=== PATIENT | male | born 1950 | race Caucasian/White ===

== ENCOUNTER 2023-03-16 01:25 | Inpatient (IN) | payer MEDICARE, OTHER ==
[~2023-03-16] VITALS: Ht 165.1 cm; Wt 78.0 kg
[2023-03-16 00:35] VITALS: BP 120/57; TEMP 98.2; O2SAT 98
[2023-03-16] MEDS ORDERED: HYDROCODONE/APAP 5/325MG TABLET PO PRN (03:00)
[2023-03-16] MEDS ORDERED: DEXTROSE 50%-WATER 50 ML DISP.SYRIN IV PRN (03:00)
[2023-03-16] MEDS ORDERED: MAG HYDROX/AL HYDROX/SIMETH 30 ML UDC PO PRN (03:00)
[2023-03-16] MEDS ORDERED: MAGNESIUM HYDROXIDE 30 ML UDC PO PRN (03:00)
[2023-03-16] MEDS ORDERED: Z GUARD REMEDY 4 OZ OINT TP PRN (03:00)
[2023-03-16] MEDS ORDERED: MORPHINE SULFATE INJ 2 MG/ML DISP.SYRIN IV PRN (03:00)
[2023-03-16] MEDS: BLOOD SUGAR DIAGNOSTIC 1 EACH STRIP IN SCH (06:46)
[2023-03-16] MEDS: INSULIN REGULAR, HUMAN 100 UNIT/ML 3 ML VIAL SQ PRN (06:48)
[2023-03-16] MEDS: PANTOPRAZOLE 40 MG TABLET.DR PO SCH (07:41)
[2023-03-16] MEDS ORDERED: CEPH500C2 PO (08:24)
[2023-03-16] MEDS ORDERED: CLOP75TA15 PO (08:24)
[2023-03-16] MEDS ORDERED: ASPI-1169 PO (08:24)
[2023-03-16] MEDS ORDERED: BUME2TAB7 PO (08:24)
[2023-03-16] MEDS ORDERED: METO25TA6 PO (08:24)
[2023-03-16] MEDS ORDERED: BLOO-668 IN (08:24)
[2023-03-16] MEDS ORDERED: ROSU5TAB PO (08:24)
[2023-03-16] MEDS ORDERED: INSU100I24 SQ (08:24)
[2023-03-16] MEDS: FUROSEMIDE 40 MG/4 ML VIAL IV SCH (09:06)
[2023-03-16 09:29] LABS: BASOPHILS % (AUTO) 0.5 % (0.0-2.0); EOSINOPHILS # (AUTO) 0.1 K/uL (0.0-0.7); EOSINOPHILS % (AUTO) 2.6 % (0.0-6.0); HEMATOCRIT 31 % (39-51); HEMOGLOBIN 10.1 g/dL (13.5-17.5); LYMPHOCYTES # (AUTO) 0.6 K/uL (0.8-4.8); LYMPHOCYTES % (AUTO) 9.7 % (20.0-44.0); MEAN CORPUSCULAR HEMOGLOBIN 25 PG (26.0-33.0); MEAN CORPUSCULAR HGB CONC 32 g/dl (31.0-36.0); MEAN CORPUSCULAR VOLUME 77 fL (80-96); MONOCYTES # (AUTO) 0.6 K/uL (0.1-1.30); MONOCYTES % (AUTO) 10.5 % (2.0-12.0); NEUTROPHILS # (AUTO) 4.4 K/uL (1.8-8.9); NEUTROPHILS % (AUTO) 76.7 % (43.0-81.0); PLATELET COUNT (AUTO) 281 K/uL (150-450); RED BLOOD CELL COUNT(AUTO) 4.06 MIL/uL (4.5-6.0); RED CELL DISTRIBUTION WIDTH 20.4 % (11.5-15.0); WHITE BLOOD COUNT (AUTO) 5.7 K/uL (4.3-11.0)
[2023-03-16 09:42] LABS: ALBUMIN 2.3 g/dL (3.4-5.0); BILIRUBIN,TOTAL 1.2 mg/dL (0.2-1.0); CALCIUM, SERUM 8.8 mg/dL (8.5-10.1); CREATININE 1.2 mg/dL (0.6-1.3); PHOSPHORUS 3.8 mg/dL (2.5-4.9); POTASSIUM 3.5 mmol/L (3.5-5.1); TOTAL PROTEIN, SERUM 8.1 g/dL (6.4-8.2)
[2023-03-16 12:10] VITALS: BP 114/54; TEMP 97.5; O2SAT 95
[2023-03-16 16:02] VITALS: BP 125/65; TEMP 97.5; O2SAT 96
[2023-03-16] MEDS ORDERED: INSULIN DEGLUDEC 75 UNIT SQ PRN (16:30)
[2023-03-16] MEDS: CEPHALEXIN MONOHYDRATE 500 MG CAPSULE PO SCH (18:10)
[2023-03-16] MEDS: ENOXAPARIN SODIUM 40 MG/0.4 ML DISP.SYRIN SQ SCH (18:11)
[2023-03-16 20:00] VITALS: BP 118/56; TEMP 98; O2SAT 97
[2023-03-17] VITALS: BP 122/68; TEMP 97.7; O2SAT 96
[2023-03-17 04:00] VITALS: BP 117/61; TEMP 98; O2SAT 95
[2023-03-17 05:00] VITALS: BP 117/61; TEMP 98; O2SAT 95
[2023-03-17 07:03] LABS: BASOPHILS % (AUTO) 0.6 % (0.0-2.0); EOSINOPHILS # (AUTO) 0.1 K/uL (0.0-0.7); EOSINOPHILS % (AUTO) 2.5 % (0.0-6.0); HEMATOCRIT 29 % (39-51); HEMOGLOBIN 9.3 g/dL (13.5-17.5); LYMPHOCYTES # (AUTO) 0.7 K/uL (0.8-4.8); LYMPHOCYTES % (AUTO) 13.2 % (20.0-44.0); MEAN CORPUSCULAR HEMOGLOBIN 25 PG (26.0-33.0); MEAN CORPUSCULAR HGB CONC 32 g/dl (31.0-36.0); MEAN CORPUSCULAR VOLUME 77 fL (80-96); MONOCYTES # (AUTO) 0.7 K/uL (0.1-1.30); MONOCYTES % (AUTO) 12.2 % (2.0-12.0); NEUTROPHILS # (AUTO) 3.8 K/uL (1.8-8.9); NEUTROPHILS % (AUTO) 71.5 % (43.0-81.0); PLATELET COUNT (AUTO) 280 K/uL (150-450); RED BLOOD CELL COUNT(AUTO) 3.73 MIL/uL (4.5-6.0); RED CELL DISTRIBUTION WIDTH 20.2 % (11.5-15.0); WHITE BLOOD COUNT (AUTO) 5.4 K/uL (4.3-11.0)
[2023-03-17 07:33] LABS: CALCIUM, SERUM 8.5 mg/dL (8.5-10.1); CHLORIDE 104 mmol/L (98-107); GLUCOSE 121 mg/dL (74-106); MAGNESIUM 2.1 mg/dL (1.8-2.4); PHOSPHORUS 3.9 mg/dL (2.5-4.9); POTASSIUM 3.6 mmol/L (3.5-5.1); SODIUM SERUM 138 mmol/L (136-145); UREA NITROGEN, BLOOD 27 mg/dL (7-18)
[2023-03-17 07:40] LABS: CHOLESTEROL 174 mg/dL (<200); HDL CHOLESTEROL 37 mg/dL (40-60); LDL 121 mg/dL (0-99); THYROID STIMULATING HORMONE 5.116 uIU/mL (0.358-3.74); TRIGLYCERIDES 71 mg/dL (30-150)
[2023-03-17 08:00] VITALS: BP 120/65; TEMP 97.9; O2SAT 91
[2023-03-17 08:17] LABS: CARBON DIOXIDE 22 mmol/L (21-32)
[2023-03-17] MEDS: POTASSIUM CHLORIDE 20 MEQ TAB.PRT.SR PO SCH (08:36)
[2023-03-17] MEDS: ATORVASTATIN 10 MG TABLET PO SCH (08:36)
[2023-03-17] MEDS: ASPIRIN 81 MG TAB.CHEW PO SCH (08:36)
[2023-03-17] MEDS: METOPROLOL TARTRATE 25 MG TABLET PO SCH (08:38)
[2023-03-17] MEDS: CLOPIDOGREL BISULFATE 75 MG TABLET PO SCH (08:38)
[2023-03-17] MEDS: FUROSEMIDE 100 MG/10 ML VIAL IV SCH (08:41)
[2023-03-17] MEDS: INSULIN GLARGINE, 100 UNIT/ML CARTRIDGE SQ SCH (08:49)
[2023-03-17 12:00] VITALS: BP 111/58; TEMP 97.3; O2SAT 95
[2023-03-17 20:00] VITALS: BP 112/55; TEMP 98.2; O2SAT 100
[2023-03-18] VITALS: BP 121/61; TEMP 98.6; O2SAT 91
[2023-03-18 04:00] VITALS: BP 123/66; TEMP 97.9; O2SAT 97
[2023-03-18 07:25] LABS: BASOPHILS % (AUTO) 0.6 % (0.0-2.0); EOSINOPHILS # (AUTO) 0.2 K/uL (0.0-0.7); EOSINOPHILS % (AUTO) 3.6 % (0.0-6.0); HEMATOCRIT 30 % (39-51); HEMOGLOBIN 9.7 g/dL (13.5-17.5); LYMPHOCYTES # (AUTO) 0.7 K/uL (0.8-4.8); LYMPHOCYTES % (AUTO) 13.7 % (20.0-44.0); MEAN CORPUSCULAR HEMOGLOBIN 25 PG (26.0-33.0); MEAN CORPUSCULAR HGB CONC 33 g/dl (31.0-36.0); MEAN CORPUSCULAR VOLUME 77 fL (80-96); MONOCYTES # (AUTO) 0.6 K/uL (0.1-1.30); NEUTROPHILS # (AUTO) 3.7 K/uL (1.8-8.9); NEUTROPHILS % (AUTO) 70.1 % (43.0-81.0); PLATELET COUNT (AUTO) 282 K/uL (150-450); RED BLOOD CELL COUNT(AUTO) 3.85 MIL/uL (4.5-6.0); RED CELL DISTRIBUTION WIDTH 19.7 % (11.5-15.0); WHITE BLOOD COUNT (AUTO) 5.3 K/uL (4.3-11.0)
[2023-03-18 07:39] LABS: ALBUMIN 2.2 g/dL (3.4-5.0); BILIRUBIN,TOTAL 0.9 mg/dL (0.2-1.0); CALCIUM, SERUM 8.5 mg/dL (8.5-10.1); CREATININE 1.1 mg/dL (0.6-1.3); PHOSPHORUS 4.1 mg/dL (2.5-4.9); POTASSIUM 3.8 mmol/L (3.5-5.1); TOTAL PROTEIN, SERUM 7.9 g/dL (6.4-8.2)
[2023-03-18 08:00] VITALS: BP 118/60; TEMP 98.1; O2SAT 97
[2023-03-18] MEDS: POTASSIUM CHLORIDE 20 MEQ TAB.PRT.SR PO SCH (09:26)
[2023-03-18] MEDS: FUROSEMIDE 100 MG/10 ML VIAL IV SCH (09:26)
[2023-03-18] MEDS: ATORVASTATIN 40 MG TABLET PO SCH (09:37)
[2023-03-18 12:00] VITALS: BP 107/64; TEMP 98; O2SAT 98
[2023-03-18 16:00] VITALS: BP 109/60; TEMP 98.2; O2SAT 98
[2023-03-18 20:00] VITALS: BP_SYST 105; BP_DIAS 48; BP_DIAS 78; TEMP 97; TEMP 97.9; O2SAT 100
[2023-03-19] VITALS: BP 105/48; TEMP 97.9; O2SAT 98
[2023-03-19 04:00] VITALS: BP_SYST 108; BP_DIAS 54; BP_DIAS 59; TEMP 98.2; O2SAT 97
[2023-03-19 06:37] LABS: BASOPHILS % (AUTO) 0.5 % (0.0-2.0); EOSINOPHILS # (AUTO) 0.1 K/uL (0.0-0.7); EOSINOPHILS % (AUTO) 2.8 % (0.0-6.0); HEMATOCRIT 29 % (39-51); HEMOGLOBIN 9.3 g/dL (13.5-17.5); LYMPHOCYTES # (AUTO) 0.7 K/uL (0.8-4.8); LYMPHOCYTES % (AUTO) 13.7 % (20.0-44.0); MEAN CORPUSCULAR HEMOGLOBIN 25 PG (26.0-33.0); MEAN CORPUSCULAR HGB CONC 32 g/dl (31.0-36.0); MEAN CORPUSCULAR VOLUME 77 fL (80-96); MONOCYTES # (AUTO) 0.6 K/uL (0.1-1.30); MONOCYTES % (AUTO) 11.1 % (2.0-12.0); NEUTROPHILS # (AUTO) 3.6 K/uL (1.8-8.9); NEUTROPHILS % (AUTO) 71.9 % (43.0-81.0); PLATELET COUNT (AUTO) 265 K/uL (150-450); RED BLOOD CELL COUNT(AUTO) 3.71 MIL/uL (4.5-6.0); RED CELL DISTRIBUTION WIDTH 19.9 % (11.5-15.0)
[2023-03-19 07:00] VITALS: BP 118/59; TEMP 97.9; O2SAT 98
[2023-03-19 07:00] LABS: ALBUMIN 2.1 g/dL (3.4-5.0); BILIRUBIN,TOTAL 0.8 mg/dL (0.2-1.0); CALCIUM, SERUM 8.5 mg/dL (8.5-10.1); CREATININE 1.2 mg/dL (0.6-1.3); MAGNESIUM 2.1 mg/dL (1.8-2.4); POTASSIUM 4.1 mmol/L (3.5-5.1); TOTAL PROTEIN, SERUM 7.7 g/dL (6.4-8.2)
[2023-03-19] MEDS: MUPIROCIN OINT 2% 22 GM TUBE TP SCH (08:45)
[2023-03-19] MEDS ORDERED: GADOTERATE MEGLUMINE 10 MMOL/20 ML VIAL IV ONE (12:25)
[2023-03-19 16:00] VITALS: BP 118/60; TEMP 97.5; O2SAT 98
[2023-03-19 20:00] VITALS: BP 119/53; TEMP 97.3; O2SAT 99
[2023-03-20 00:19] VITALS: BP 110/55; TEMP 98.1; O2SAT 97
[2023-03-20 05:00] VITALS: BP 90/59; TEMP 98.2; O2SAT 98
[2023-03-20 07:25] LABS: CALCIUM, SERUM 8.4 mg/dL (8.5-10.1); CREATININE 1.1 mg/dL (0.6-1.3)
[2023-03-20 07:30] VITALS: BP 115/64; TEMP 98.6; O2SAT 97
[2023-03-20] MEDS: POTASSIUM CHLORIDE 20 MEQ TAB.PRT.SR PO SCH (10:13)
[2023-03-20] MEDS: FUROSEMIDE 100 MG/10 ML VIAL IV SCH (10:14)
[2023-03-20] MEDS: VANCOMYCIN 1.5 GM in IV D5W 500ml IV ONE (10:17)
[2023-03-20 16:00] VITALS: BP_SYST 119; BP_SYST 96; BP_DIAS 55; TEMP 97.7; TEMP 99.9; O2SAT 96; O2SAT 97
[2023-03-20 20:00] VITALS: BP 129/67; TEMP 99.1; O2SAT 99
[2023-03-20] MEDS: VANCOMYCIN HCL 0.75 GM in IV D5W 250 ML IV SCH (22:14)
[2023-03-21] VITALS: BP 121/58; TEMP 97.7; O2SAT 94
[2023-03-21] MEDS: ZOLPIDEM TARTRATE 5 MG TABLET PO PRN (00:49)
[2023-03-21 07:11] LABS: BASOPHILS % (AUTO) 0.5 % (0.0-2.0); EOSINOPHILS # (AUTO) 0.1 K/uL (0.0-0.7); EOSINOPHILS % (AUTO) 2.7 % (0.0-6.0); HEMATOCRIT 27 % (39-51); HEMOGLOBIN 8.8 g/dL (13.5-17.5); LYMPHOCYTES # (AUTO) 0.8 K/uL (0.8-4.8); LYMPHOCYTES % (AUTO) 14.9 % (20.0-44.0); MEAN CORPUSCULAR HEMOGLOBIN 25 PG (26.0-33.0); MEAN CORPUSCULAR HGB CONC 33 g/dl (31.0-36.0); MEAN CORPUSCULAR VOLUME 77 fL (80-96); MONOCYTES # (AUTO) 0.5 K/uL (0.1-1.30); MONOCYTES % (AUTO) 10.5 % (2.0-12.0); NEUTROPHILS # (AUTO) 3.7 K/uL (1.8-8.9); NEUTROPHILS % (AUTO) 71.4 % (43.0-81.0); PLATELET COUNT (AUTO) 253 K/uL (150-450); RED BLOOD CELL COUNT(AUTO) 3.52 MIL/uL (4.5-6.0); RED CELL DISTRIBUTION WIDTH 19.3 % (11.5-15.0); WHITE BLOOD COUNT (AUTO) 5.2 K/uL (4.3-11.0)
[2023-03-21 07:22] LABS: ALBUMIN 2.2 g/dL (3.4-5.0); BILIRUBIN,TOTAL 0.7 mg/dL (0.2-1.0); CALCIUM, SERUM 8.5 mg/dL (8.5-10.1); CREATININE 1.2 mg/dL (0.6-1.3); MAGNESIUM 2.1 mg/dL (1.8-2.4); PHOSPHORUS 3.6 mg/dL (2.5-4.9); POTASSIUM 4.4 mmol/L (3.5-5.1); TOTAL PROTEIN, SERUM 7.8 g/dL (6.4-8.2)
[2023-03-21 08:00] VITALS: BP 115/58; TEMP 97.7; O2SAT 95
[2023-03-21 12:00] VITALS: BP 108/50; TEMP 97.5; O2SAT 95
[2023-03-21] MEDS: FUROSEMIDE 100 MG/10 ML VIAL IV SCH (12:55)
[2023-03-21 16:00] VITALS: BP 110/53; TEMP 97.7; O2SAT 95
[2023-03-21] MEDS: CEFTRIAXONE 2 G in IV D5W 100 ML IV SCH (16:43)
[2023-03-21] MEDS: DOCUSATE SODIUM 100 MG CAPSULE PO SCH (18:29)
[2023-03-21 20:00] VITALS: BP 112/50; TEMP 97.9; O2SAT 98
[2023-03-21] MEDS: BISACODYL (5 MG) 5 MG TABLET.DR PO PRN (21:59)
[2023-03-22] VITALS (7 sets, daily range): BP systolic 100–120; BP diastolic 45–60; TEMP 97.7–98.6; O2SAT 97–100
[2023-03-22 06:21] LABS: BASOPHILS % (AUTO) 0.5 % (0.0-2.0); EOSINOPHILS # (AUTO) 0.1 K/uL (0.0-0.7); EOSINOPHILS % (AUTO) 2.6 % (0.0-6.0); HEMATOCRIT 24 % (39-51); HEMOGLOBIN 7.7 g/dL (13.5-17.5); LYMPHOCYTES # (AUTO) 0.9 K/uL (0.8-4.8); LYMPHOCYTES % (AUTO) 19.4 % (20.0-44.0); MEAN CORPUSCULAR HEMOGLOBIN 25 PG (26.0-33.0); MEAN CORPUSCULAR HGB CONC 33 g/dl (31.0-36.0); MEAN CORPUSCULAR VOLUME 76 fL (80-96); MONOCYTES # (AUTO) 0.4 K/uL (0.1-1.30); MONOCYTES % (AUTO) 9.8 % (2.0-12.0); NEUTROPHILS % (AUTO) 67.7 % (43.0-81.0); PLATELET COUNT (AUTO) 226 K/uL (150-450); RED BLOOD CELL COUNT(AUTO) 3.09 MIL/uL (4.5-6.0); RED CELL DISTRIBUTION WIDTH 19.8 % (11.5-15.0); WHITE BLOOD COUNT (AUTO) 4.5 K/uL (4.3-11.0)
[2023-03-22 06:58] LABS: ALBUMIN 2.1 g/dL (3.4-5.0); BILIRUBIN,TOTAL 0.6 mg/dL (0.2-1.0); CALCIUM, SERUM 8.4 mg/dL (8.5-10.1); CREATININE 1.1 mg/dL (0.6-1.3); MAGNESIUM 2.1 mg/dL (1.8-2.4); POTASSIUM 3.9 mmol/L (3.5-5.1); TOTAL PROTEIN, SERUM 7.5 g/dL (6.4-8.2)
[2023-03-22] MEDS: SPIRONOLACTONE 25 MG TABLET PO SCH (09:55)
[2023-03-22] MEDS: VANCOMYCIN 1 GM in IV D5W 250 ML IV SCH (14:07)
[2023-03-23] VITALS (18 sets, daily range): BP systolic 64–117; BP diastolic 39–77; TEMP 97.8–98.4; O2SAT 88–100
[2023-03-23 00:55] LABS: OCCULT BLOOD STOOL NEGATIVE (NEGATIVE)
[2023-03-23 09:33] LABS: BASOPHILS % (AUTO) 0.4 % (0.0-2.0); EOSINOPHILS % (AUTO) 0.3 % (0.0-6.0); HEMATOCRIT 22 % (39-51); LYMPHOCYTES # (AUTO) 0.7 K/uL (0.8-4.8); LYMPHOCYTES % (AUTO) 13.7 % (20.0-44.0); MEAN CORPUSCULAR HEMOGLOBIN 25 PG (26.0-33.0); MEAN CORPUSCULAR HGB CONC 32 g/dl (31.0-36.0); MEAN CORPUSCULAR VOLUME 77 fL (80-96); MONOCYTES # (AUTO) 0.4 K/uL (0.1-1.30); MONOCYTES % (AUTO) 8.1 % (2.0-12.0); NEUTROPHILS % (AUTO) 77.5 % (43.0-81.0); PLATELET COUNT (AUTO) 213 K/uL (150-450); RED BLOOD CELL COUNT(AUTO) 2.81 MIL/uL (4.5-6.0); RED CELL DISTRIBUTION WIDTH 19.5 % (11.5-15.0); WHITE BLOOD COUNT (AUTO) 5.1 K/uL (4.3-11.0)
[2023-03-23] MEDS: ONDANSETRON HCL/PF 4 MG/2 ML VIAL IVP PRN (15:43)
[2023-03-24] VITALS (32 sets, daily range): BP systolic 76–111; BP diastolic 34–77; TEMP 97.8–98.9; O2SAT 82–100
[2023-03-24 05:08] LABS: CALCIUM, SERUM 8.5 mg/dL (8.5-10.1); CREATININE 1.3 mg/dL (0.6-1.3)
[2023-03-24 07:00] LABS: BASOPHILS % (AUTO) 0.5 % (0.0-2.0); LYMPHOCYTES # (AUTO) 0.8 K/uL (0.8-4.8); MEAN CORPUSCULAR VOLUME 77 fL (80-96); MONOCYTES # (AUTO) 0.5 K/uL (0.1-1.30); WHITE BLOOD COUNT (AUTO) 5.8 K/uL (4.3-11.0)
[2023-03-24 07:09] LABS: EOSINOPHILS % (AUTO) 0.5 % (0.0-6.0); LYMPHOCYTES % (AUTO) 13.5 % (20.0-44.0); MEAN CORPUSCULAR HEMOGLOBIN 25 PG (26.0-33.0); MEAN CORPUSCULAR HGB CONC 32 g/dl (31.0-36.0); MONOCYTES % (AUTO) 8.6 % (2.0-12.0); NEUTROPHILS # (AUTO) 4.5 K/uL (1.8-8.9); NEUTROPHILS % (AUTO) 76.9 % (43.0-81.0); PLATELET COUNT (AUTO) 199 K/uL (150-450); RED CELL DISTRIBUTION WIDTH 19.2 % (11.5-15.0)
[2023-03-24 07:22] LABS: HEMATOCRIT 19 % (39-51); HEMOGLOBIN 6.2 g/dL (13.5-17.5)
[2023-03-24 07:46] LABS: ANISOCYTOSIS 1+; EOSINOPHILS % (MANUAL) 1 % (0-4); LYMPHOCYTES % (MANUAL) 7 % (16-48); MONOCYTES % (MANUAL) 4 % (0-11.0); NEUTROPHILS % (MANUAL) 88 (42-76)
[2023-03-24] MEDS: FUROSEMIDE 20 MG/2 ML VIAL IV SCH (13:10)
[2023-03-24] MEDS: SIMETHICONE 80 MG TAB.CHEW PO PRN (13:24)
[2023-03-24] MEDS ORDERED: VANCOMYCIN 0.75 GM in IV D5W 250 ML IV SCH (16:30)
[2023-03-24 18:29] LABS: BASOPHILS % (AUTO) 0.5 % (0.0-2.0); EOSINOPHILS % (AUTO) 0.3 % (0.0-6.0); LYMPHOCYTES # (AUTO) 0.8 K/uL (0.8-4.8); LYMPHOCYTES % (AUTO) 12.5 % (20.0-44.0); MEAN CORPUSCULAR HEMOGLOBIN 25 PG (26.0-33.0); MEAN CORPUSCULAR HGB CONC 32 g/dl (31.0-36.0); MEAN CORPUSCULAR VOLUME 77 fL (80-96); MONOCYTES # (AUTO) 0.6 K/uL (0.1-1.30); MONOCYTES % (AUTO) 9.5 % (2.0-12.0); NEUTROPHILS # (AUTO) 5.2 K/uL (1.8-8.9); NEUTROPHILS % (AUTO) 77.2 % (43.0-81.0); PLATELET COUNT (AUTO) 196 K/uL (150-450); RED BLOOD CELL COUNT(AUTO) 2.51 MIL/uL (4.5-6.0); RED CELL DISTRIBUTION WIDTH 19.6 % (11.5-15.0); WHITE BLOOD COUNT (AUTO) 6.7 K/uL (4.3-11.0)
[2023-03-24 18:45] LABS: HEMATOCRIT 19 % (39-51); HEMOGLOBIN 6.2 g/dL (13.5-17.5)
[2023-03-24 19:37] LABS: ANISOCYTOSIS 1+; EOSINOPHILS % (MANUAL) 1 % (0-4); LYMPHOCYTES % (MANUAL) 13 % (16-48); MONOCYTES % (MANUAL) 5 % (0-11.0); NEUTROPHILS % (MANUAL) 81 (42-76); PLATELET ESTIMATE ADEQUATE
[2023-03-24 19:38] LABS: ROULEAUX 1+
[2023-03-24] MEDS: PANTOPRAZOLE 40 MG VIAL IV SCH (20:59)
[2023-03-24] MEDS: SOD FERRIC GLUC 125 MG in IV NS 0.9% 100 ML IV SCH (21:00)
[2023-03-24] MEDS: VANCOMYCIN 0.75 GM in IV D5W 250 ML IV SCH (21:22)
[2023-03-24 21:44] LABS: CREATININE, URINE 73.7 MG/DL (30.0-125.0); URINE TOTAL PROTEIN 29.8 mg/dL (0-11.9)
[2023-03-24 22:04] LABS: APPEARANCE,URINE CLEAR (CLEAR); BILIRUBIN,URINE NEGATIVE (NEGATIVE); BLOOD, URINE NEGATIVE Ery/uL (NEGATIVE); COLOR,URINE YELLOW (YELLOW); KETONES,URINE NEGATIVE (NEGATIVE); LEUKOCYTE ESTERASE ,URINE NEGATIVE (NEGATIVE); NITRITE, URINE NEGATIVE (NEGATIVE); PH,URINE 5.5 (5.0-8.0); PROTEIN,URINE TRACE mg/dl (NEGATIVE); UGLUCOSE NEGATIVE (NEGATIVE); UROBILINOGEN,URINE 0.2 EU/dL (0.2)
[2023-03-24 22:14] LABS: OCCULT BLOOD STOOL POSITIVE (NEGATIVE)
[2023-03-24 22:28] LABS: ADD URINE CULTURE NO; BACTERIA,URINE None seen /HPF (None Seen); MUCUS,URINE Few /LPF (None Seen); RBC,URINE NONE SEEN /HPF (0-2); SQUAMOUS EPITHELIAL CELL,UR None Seen /HPF (None Seen); WBC,URINE NONE SEEN /HPF (0-3)
[2023-03-24 22:37] LABS: EOSINOPHIL,URINE None Seen
[2023-03-25] VITALS (31 sets, daily range): BP systolic 91–130; BP diastolic 36–84; TEMP 97.5–98.2; O2SAT 95–100
[2023-03-25 04:42] LABS: BASOPHILS % (AUTO) 0.7 % (0.0-2.0); EOSINOPHILS % (AUTO) 0.9 % (0.0-6.0); LYMPHOCYTES # (AUTO) 0.7 K/uL (0.8-4.8); LYMPHOCYTES % (AUTO) 13.5 % (20.0-44.0); MEAN CORPUSCULAR HEMOGLOBIN 25 PG (26.0-33.0); MEAN CORPUSCULAR HGB CONC 32 g/dl (31.0-36.0); MEAN CORPUSCULAR VOLUME 77 fL (80-96); MONOCYTES # (AUTO) 0.6 K/uL (0.1-1.30); MONOCYTES % (AUTO) 10.5 % (2.0-12.0); NEUTROPHILS # (AUTO) 4.1 K/uL (1.8-8.9); NEUTROPHILS % (AUTO) 74.4 % (43.0-81.0); PLATELET COUNT (AUTO) 181 K/uL (150-450); RED BLOOD CELL COUNT(AUTO) 2.26 MIL/uL (4.5-6.0); RED CELL DISTRIBUTION WIDTH 19.7 % (11.5-15.0); WHITE BLOOD COUNT (AUTO) 5.5 K/uL (4.3-11.0)
[2023-03-25 04:53] LABS: INR 1.38 (0.91-1.10); PROTHROMBIN TIME 14.3 SECS (9.2-11.1)
[2023-03-25 04:57] LABS: HEMATOCRIT 18 % (39-51); HEMOGLOBIN 5.6 g/dL (13.5-17.5)
[2023-03-25 05:01] LABS: IRON, SERUM 123 ug/dl (50-175); TOTAL IRON BINDING CAPACITY 278 ug/dl (250-450)
[2023-03-25 05:06] LABS: CREATINE KINASE, TOTAL 108 U/L (39-308); FERRITIN 35 ng/mL (8-388)
[2023-03-25 05:28] LABS: ALANINE AMINOTRANSFERASE 16 U/L (12-78); ALBUMIN 2.2 g/dL (3.4-5.0); ALKALINE PHOSPHATASE 214 U/L (46-116); ASPARTATE AMINOTRANSFERASE 28 U/L (15-37); BILIRUBIN,TOTAL 0.5 mg/dL (0.2-1.0); CALCIUM, SERUM 8.1 mg/dL (8.5-10.1); CARBON DIOXIDE 27 mmol/L (21-32); CHLORIDE 101 mmol/L (98-107); CREATININE 1.8 mg/dL (0.6-1.3); GLUCOSE 122 mg/dL (74-106); MAGNESIUM 2.2 mg/dL (1.8-2.4); PHOSPHORUS 4.1 mg/dL (2.5-4.9); POTASSIUM 3.7 mmol/L (3.5-5.1); SODIUM SERUM 137 mmol/L (136-145); TOTAL PROTEIN, SERUM 7.5 g/dL (6.4-8.2); UREA NITROGEN, BLOOD 60 mg/dL (7-18)
[2023-03-25 05:40] LABS: ANISOCYTOSIS 1+; BASOPHILS % (MANUAL) 0 % (0.0-2.0); EOSINOPHILS % (MANUAL) 2 % (0-4); HYPOCHROMASIA 1+; LYMPHOCYTES % (MANUAL) 11 % (16-48); MONOCYTES % (MANUAL) 9 % (0-11.0); NEUTROPHILS % (MANUAL) 78 (42-76); PLATELET ESTIMATE ADEQUATE
[2023-03-25 08:46] LABS: ABG BASE EXCESS -2.3 mmol/L; ABG PCO2 32.6 mmHg (35.0-45.0); ABG PH 7.437 (7.350-7.450); ABG PO2 63.3 mmHg (75.0-100.0); ABG TOTAL HEMOGLOBIN 8.5 G/dL (13.5-18.0); AaDO2 256.5 mmHg; COHb 0.6 % (0.5-1.5); MetHb 0.2 % (0.0-1.5); O2Hb 89.3 % (94.0-97.0); SITE, ABG Right Radial; VENT MODE, BG 8L SIMPLE MASK
[2023-03-25] MEDS: diphenhydrAMINE HCL 50 MG/ML VIAL IV PRN (09:06)
[2023-03-25] MEDS: ACETAMINOPHEN 325 MG TABLET PO PRN (09:06)
[2023-03-25 18:24] LABS: HEMOGLOBIN 7.5 g/dL (13.5-17.5)
[2023-03-25 18:42] LABS: D-DIMER 5.01 mg/L(FEU (0.17-0.50)
[2023-03-25] MEDS ORDERED: FENTANYL PF 100MCG/2ML AMPUL ONE ×2 (19:03→21:11)
[2023-03-26] VITALS (18 sets, daily range): BP systolic 55–147; BP diastolic 29–104; TEMP 97.6–98.6; O2SAT 96–100
[2023-03-26 03:07] LABS: PTH, INTACT 39 pg/mL (15-65)
[2023-03-26 03:26] LABS: BASOPHILS % (AUTO) 0.5 % (0.0-2.0); EOSINOPHILS # (AUTO) 0.1 K/uL (0.0-0.7); EOSINOPHILS % (AUTO) 1.1 % (0.0-6.0); HEMATOCRIT 22 % (39-51); HEMOGLOBIN 7.1 g/dL (13.5-17.5); LYMPHOCYTES # (AUTO) 0.6 K/uL (0.8-4.8); LYMPHOCYTES % (AUTO) 9.3 % (20.0-44.0); MEAN CORPUSCULAR HEMOGLOBIN 25 PG (26.0-33.0); MEAN CORPUSCULAR HGB CONC 32 g/dl (31.0-36.0); MEAN CORPUSCULAR VOLUME 79 fL (80-96); MONOCYTES # (AUTO) 0.7 K/uL (0.1-1.30); MONOCYTES % (AUTO) 10.2 % (2.0-12.0); NEUTROPHILS # (AUTO) 5.5 K/uL (1.8-8.9); NEUTROPHILS % (AUTO) 78.9 % (43.0-81.0); PLATELET COUNT (AUTO) 236 K/uL (150-450); RED CELL DISTRIBUTION WIDTH 19.2 % (11.5-15.0)
[2023-03-26 03:40] LABS: CALCIUM, SERUM 8.2 mg/dL (8.5-10.1); CARBON DIOXIDE 29 mmol/L (21-32); CHLORIDE 103 mmol/L (98-107); CREATININE 1.6 mg/dL (0.6-1.3); GLUCOSE 131 mg/dL (74-106); POTASSIUM 3.6 mmol/L (3.5-5.1); SODIUM SERUM 137 mmol/L (136-145); UREA NITROGEN, BLOOD 55 mg/dL (7-18)
[2023-03-26 09:11] LABS: *SPE A/G RATIO 0.5 (0.7-1.7); *SPE ALPHA-1-GLOBULIN 0.3 g/dL (0.0-0.4); *SPE ALPHA-2-GLOBULIN 0.6 g/dL (0.4-1.0); *SPE GLOBULIN, TOTAL 4.2 g/dL (2.2-3.9); *SPE M-SPIKE 0.7 g/dL (Not Observed); *SPE PROTEIN TOTAL 6.2 g/dL (6.0-8.5); *SPEGAMMA GLOBULIN 2.3 g/dL (0.4-1.8)
[2023-03-26 13:09] LABS: FREE KAPPA LT CHAINS SERUM 172.6 mg/L (3.3-19.4); FREE LAMBDA LT CHAIN SERUM 100.1 mg/L (5.7-26.3); KAPPA/LAMBDA RATIO SERUM 1.72 (0.26-1.65)
[2023-03-26 15:31] LABS: HEMOGLOBIN 7.4 g/dL (13.5-17.5)
[2023-03-26 16:10] LABS: INR 1.37 (0.91-1.10); PROTHROMBIN TIME 14.2 SECS (9.2-11.1)
[2023-03-26 16:20] LABS: D-DIMER 7.55 mg/L(FEU (0.17-0.50)
[2023-03-27] VITALS: BP 106/54; TEMP 98.2; O2SAT 96
[2023-03-27] MEDS: ZOLPIDEM TARTRATE 5 MG TABLET PO PRN (01:44)
[2023-03-27 04:00] VITALS: BP 90/50; TEMP 98.2; O2SAT 88
[2023-03-27 06:51] LABS: BASOPHILS % (AUTO) 0.4 % (0.0-2.0); EOSINOPHILS # (AUTO) 0.1 K/uL (0.0-0.7); EOSINOPHILS % (AUTO) 1.7 % (0.0-6.0); HEMATOCRIT 23 % (39-51); HEMOGLOBIN 7.4 g/dL (13.5-17.5); LYMPHOCYTES # (AUTO) 0.5 K/uL (0.8-4.8); LYMPHOCYTES % (AUTO) 7.4 % (20.0-44.0); MEAN CORPUSCULAR HEMOGLOBIN 26 PG (26.0-33.0); MEAN CORPUSCULAR HGB CONC 32 g/dl (31.0-36.0); MEAN CORPUSCULAR VOLUME 80 fL (80-96); MONOCYTES # (AUTO) 0.8 K/uL (0.1-1.30); MONOCYTES % (AUTO) 11.5 % (2.0-12.0); NEUTROPHILS # (AUTO) 5.8 K/uL (1.8-8.9); PLATELET COUNT (AUTO) 286 K/uL (150-450); RED BLOOD CELL COUNT(AUTO) 2.87 MIL/uL (4.5-6.0); RED CELL DISTRIBUTION WIDTH 19.7 % (11.5-15.0); WHITE BLOOD COUNT (AUTO) 7.4 K/uL (4.3-11.0)
[2023-03-27 06:57] LABS: CARBON DIOXIDE 29 mmol/L (21-32); CHLORIDE 101 mmol/L (98-107); CREATININE 1.6 mg/dL (0.6-1.3); GLUCOSE 169 mg/dL (74-106); POTASSIUM 4.1 mmol/L (3.5-5.1); SODIUM SERUM 136 mmol/L (136-145); UREA NITROGEN, BLOOD 50 mg/dL (7-18)
[2023-03-27 07:04] LABS: INR 1.38 (0.91-1.10); PARTIAL THROMBOPLASTIN TIME 22.6 SEC (24.3-34.3); PROTHROMBIN TIME 14.3 SECS (9.2-11.1)
[2023-03-27 07:05] LABS: D-DIMER 8.49 mg/L(FEU (0.17-0.50)
[2023-03-27 07:11] LABS: IRON, SERUM 18 ug/dl (50-175); TOTAL IRON BINDING CAPACITY 289 ug/dl (250-450)
[2023-03-27 07:16] LABS: FERRITIN 54 ng/mL (8-388)
[2023-03-27 08:00] VITALS: BP 115/65; TEMP 97.5; O2SAT 96
[2023-03-27 12:00] VITALS: BP 116/62; TEMP 97.3; O2SAT 96
[2023-03-27] MEDS: SOD FERRIC GLUC 125 MG in IV NS 0.9% 100 ML IV SCH (15:22)
[2023-03-27 16:00] VITALS: BP 112/59; TEMP 98.1; O2SAT 97
[2023-03-27] MEDS ORDERED: MORPHINE SULFATE INJ 2 MG/ML DISP.SYRIN IV ONE (17:00)
[2023-03-27] MEDS ORDERED: LIDOCAINE 0.5% HCL 50 ML VIAL IJ ONE (17:00)
[2023-03-27] MEDS ORDERED: LORAZEPAM 1 MG TABLET PO ONE (17:00)
[2023-03-27 20:00] VITALS: BP 106/60; TEMP 97.9; O2SAT 99
[2023-03-27] MEDS: VANCOMYCIN 500 MG in IV D5W 100ml IV SCH (20:56)
[2023-03-28] VITALS: BP 110/64; TEMP 98; O2SAT 99
[2023-03-28 01:07] LABS: FOLIC ACID 11.7 ng/mL (>3.0)
[2023-03-28 04:00] VITALS: BP 110/55; TEMP 98.1; O2SAT 98
[2023-03-28 07:21] LABS: CALCIUM, SERUM 8.3 mg/dL (8.5-10.1); CARBON DIOXIDE 28 mmol/L (21-32); CHLORIDE 104 mmol/L (98-107); CREATININE 1.3 mg/dL (0.6-1.3); GLUCOSE 105 mg/dL (74-106); POTASSIUM 3.9 mmol/L (3.5-5.1); SODIUM SERUM 137 mmol/L (136-145); UREA NITROGEN, BLOOD 43 mg/dL (7-18)
[2023-03-28 07:22] LABS: INR 1.39 (0.91-1.10); PARTIAL THROMBOPLASTIN TIME 30.4 SEC (24.3-34.3); PROTHROMBIN TIME 14.4 SECS (9.2-11.1)
[2023-03-28 07:28] LABS: D-DIMER 6.63 mg/L(FEU (0.17-0.50)
[2023-03-28 08:00] VITALS: BP 114/50; TEMP 97.8; O2SAT 97
[2023-03-28 12:00] VITALS: BP 107/51; TEMP 97.9; O2SAT 98
[2023-03-28] MEDS: LORAZEPAM 1 MG TABLET PO PRN (14:35)
[2023-03-28] MEDS: MORPHINE SULFATE INJ 2 MG/ML DISP.SYRIN IV PRN (14:36)
[2023-03-28 16:00] VITALS: BP 120/59; TEMP 98.2; O2SAT 97
[2023-03-28] MEDS: GLUCERNA SHAKE 237 ML CAN PO SCH (17:09)
[2023-03-28 20:00] VITALS: BP_SYST 110; BP_SYST 127; BP_DIAS 63; BP_DIAS 79; TEMP 97.7; O2SAT 99
[2023-03-29] VITALS: BP 120/61; TEMP 97.8; O2SAT 95
[2023-03-29 04:00] VITALS: BP 124/62; TEMP 97.3; O2SAT 95
[2023-03-29 06:43] LABS: BASOPHILS % (AUTO) 0.3 % (0.0-2.0); EOSINOPHILS # (AUTO) 0.2 K/uL (0.0-0.7); EOSINOPHILS % (AUTO) 2.3 % (0.0-6.0); HEMATOCRIT 24 % (39-51); HEMOGLOBIN 7.7 g/dL (13.5-17.5); LYMPHOCYTES # (AUTO) 0.7 K/uL (0.8-4.8); LYMPHOCYTES % (AUTO) 8.3 % (20.0-44.0); MEAN CORPUSCULAR HEMOGLOBIN 26 PG (26.0-33.0); MEAN CORPUSCULAR HGB CONC 32 g/dl (31.0-36.0); MEAN CORPUSCULAR VOLUME 80 fL (80-96); MONOCYTES # (AUTO) 0.9 K/uL (0.1-1.30); MONOCYTES % (AUTO) 11.1 % (2.0-12.0); NEUTROPHILS # (AUTO) 6.1 K/uL (1.8-8.9); PLATELET COUNT (AUTO) 325 K/uL (150-450); RED BLOOD CELL COUNT(AUTO) 3.02 MIL/uL (4.5-6.0); RED CELL DISTRIBUTION WIDTH 20.6 % (11.5-15.0); WHITE BLOOD COUNT (AUTO) 7.8 K/uL (4.3-11.0)
[2023-03-29 07:02] LABS: CALCIUM, SERUM 8.5 mg/dL (8.5-10.1); CHLORIDE 102 mmol/L (98-107); CREATININE 1.3 mg/dL (0.6-1.3); GLUCOSE 92 mg/dL (74-106); MAGNESIUM 2.7 mg/dL (1.8-2.4); PHOSPHORUS 3.5 mg/dL (2.5-4.9); POTASSIUM 4.2 mmol/L (3.5-5.1); SODIUM SERUM 136 mmol/L (136-145)
[2023-03-29 07:45] LABS: CARBON DIOXIDE 27 mmol/L (21-32); UREA NITROGEN, BLOOD 40 mg/dL (7-18)
[2023-03-29 08:00] VITALS: BP 107/85; TEMP 98.1; O2SAT 91
[2023-03-29 12:00] VITALS: BP 101/57; TEMP 98; O2SAT 95
[2023-03-29] MEDS ORDERED: DAPA10TA PO (15:52)
[2023-03-29] MEDS ORDERED: ATOR40TA PO ×2 (15:52)
[2023-03-29] MEDS ORDERED: DOXY-326 PO (15:52)
[2023-03-29] MEDS ORDERED: SACU1TAB7 PO (15:52)
[2023-03-29 16:00] VITALS: BP 132/65; TEMP 97.9; O2SAT 93
== END 2023-03-29 17:10 | disposition home health service (06) | DRG 291 ==
LOC: TELE 01:25 → ICU 03-23 10:48 → TELE1 03-26 16:01
PROVIDERS: ADMIT Student in an Organized Health Care Education/Training Program; ATTEND Nurse Practitioner Acute Care
PROC: 30233N1 Transfusion of Nonautologous Red Blood Cells into Peripheral Vein, Percutaneous Approach (ICD-10-PCS; 2023-03-23)
PROC: 0DB68ZX Excision of Stomach, Via Natural or Artificial Opening Endoscopic, Diagnostic (ICD-10-PCS; principal; 2023-03-25)
PROC: 07DR3ZX Extraction of Iliac Bone Marrow, Percutaneous Approach, Diagnostic (ICD-10-PCS; 2023-03-28)
DX: I13.0 Hypertensive heart and chronic kidney disease with heart failure and stage 1 through stage 4 chronic kidney disease, or unspecified chronic kidney disease (principal); I50.23 Acute on chronic systolic (congestive) heart failure; K29.71 Gastritis, unspecified, with bleeding; J96.91 Respiratory failure, unspecified with hypoxia; M86.8X6 Other osteomyelitis, lower leg; N17.9 Acute kidney failure, unspecified; L03.115 Cellulitis of right lower limb; D62 Acute posthemorrhagic anemia; J90 Pleural effusion, not elsewhere classified; C90.00 Multiple myeloma not having achieved remission; I42.0 Dilated cardiomyopathy; E78.5 Hyperlipidemia, unspecified; E11.69 Type 2 diabetes mellitus with other specified complication; Z79.4 Long term (current) use of insulin; Z79.82 Long term (current) use of aspirin; Z79.899 Other long term (current) drug therapy; Z79.02 Long term (current) use of antithrombotics/antiplatelets; N18.9 Chronic kidney disease, unspecified; E11.22 Type 2 diabetes mellitus with diabetic chronic kidney disease; E11.42 Type 2 diabetes mellitus with diabetic polyneuropathy; E11.51 Type 2 diabetes mellitus with diabetic peripheral angiopathy without gangrene; E11.621 Type 2 diabetes mellitus with foot ulcer; E11.65 Type 2 diabetes mellitus with hyperglycemia; L97.519 Non-pressure chronic ulcer of other part of right foot with unspecified severity; Z95.2 Presence of prosthetic heart valve; Z87.891 Personal history of nicotine dependence; Z82.49 Family history of ischemic heart disease and other diseases of the circulatory system; K80.20 Calculus of gallbladder without cholecystitis without obstruction; K82.8 Other specified diseases of gallbladder; I95.1 Orthostatic hypotension; I27.20 Pulmonary hypertension, unspecified; E88.09 Other disorders of plasma-protein metabolism, not elsewhere classified; D63.8 Anemia in other chronic diseases classified elsewhere; I77.1 Stricture of artery; D50.9 Iron deficiency anemia, unspecified; N32.9 Bladder disorder, unspecified
CPT/HCPCS: 36415; 36569; 36600; 71045-TC; 73630-TC; 73720-TC; 80048-TC; 80053-TC; 80061-TC; 80202-TC; 81001; 82232; 82272-TC; 82378; 82550-TC; 82570-TC; 82607-TC; 82728-TC; 82784; 82803-TC; 82962-TC; 83010; 83540-TC; 83615-TC; 83735-TC; 83970; 84100-TC; 84155; 84165; 84300-TC; 84439-TC; 84443-TC; 84484-TC; 85025-TC; 85027-TC; 85045-TC; 85378-TC; 85385-TC; 85396; 85610-TC; 86334; 86850; 86850-TC; 86860; 86870; 86880; 86880-TC; 86900; 86901; 86905; 86906; 86970; 86971; 87040-TC; 93307-TC; 93970-TC; 97110-TC; 97112-TC; 97116-TC; 97530-TC; A4223; A9575; C9113; G0378; J0696; J1200; J1650; J1815; J1940; J2270; J2405; J2704; J2916; J3010; J3370; J3490; J7030; J7050; J7060; P9016